=== PATIENT | female | born 1945 | race Caucasian/White ===

== ENCOUNTER → 2019-03-09 | Day surgery (SDC) | payer OTHER ==
--- NOTE | 2019-03-12 10:23 | OP ---
DATE OF OPERATION: 03/09/2019 PREOPERATIVE DIAGNOSIS: Right breast retroareolar 6 o'clock mass. POSTOPERATIVE DIAGNOSIS: Right breast retroareolar 6 o'clock mass. PROCEDURE: Right ultrasound-guided core biopsies and clip placement. ANESTHESIA: Local. ATTENDING SURGEON: Lemuel Loving MD ESTIMATED BLOOD LOSS: Minimal. COMPLICATIONS: None. DESCRIPTION OF PROCEDURE: Patient was made aware of the risks and benefits of the procedure and consented. She was placed in the supine position. Under sterile conditions with 1% lidocaine for local anesthesia, a small jennyfer was made in the skin. Using a 10-gauge suction biopsy device biopsy via lateral approach under ultrasound guidance, 9 cores were obtained and submitted to Pathology. Likewise, under ultrasound guidance, a U-shaped clip was placed into the biopsy region and well tolerated by the patient. Steri-Strips and sterile bandage were applied. We will contact her with the results. LEMUEL LOVING M.D. [id number]
--- NOTE | 2019-03-12 13:34 | PATH ---
Surgical Pathology Report Patient Name: PAMELA HERNANDEZ [facility]. Rec. #: [id number] /Age/Gender: 1945 (Age: 73) / F Account: [id number] Location: [facility] Taken: 03/09/2019 Received: 03/09/2019 Reported: 03/12/2019 Physicians: Lemuel Loving M.D. 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 Electronically Signed Shelly Mason M.D. Gross Description Received in formalin labeled "right breast biopsy 6:00 retro," is a 3.0 x 2.6 x 0.3 cm aggregate of multiple cantu-yellow, irregular to cylindrical portions of fibroadipose tissue. The formalin is filtered and the specimen is entirely submitted in 2 cassettes. Time to formalin fixation: not given Total formalin fixation time: Approximately 7 hours /03/09/2019 [facility]03/09/2019
== END | disposition home or self-care (01) ==
LOC: FRADUS-SUR 08:55
PROVIDERS: ATTEND Surgery Surgical Oncology
PROC: 0HBT3ZX Excision of Right Breast, Percutaneous Approach, Diagnostic (ICD-10-PCS; principal; 2019-03-09)
DX: N64.1 Fat necrosis of breast (principal); N64.89 Other specified disorders of breast; N63.10 Unspecified lump in the right breast, unspecified quadrant
CPT/HCPCS: 19083; 87899; 88305-TC; A4648